=== PATIENT | female | born 1960 | race African-American/Black ===

== ENCOUNTER 2021-09-01 12:42 | Emergency (ER) | payer OTHER, SELFPAY ==
--- NOTE | ~2021-09-01 | XR_ITS ---
EXAMINATION: XR CHEST CLINICAL INFORMATION: Shortness of breath COMPARISON: None TECHNIQUE: Frontal view of the chest was obtained. FINDINGS: The cardiac and mediastinal contours are normal. There is question of a 2 cm cyst in the right upper lobe. This is between the right anterior third and fourth ribs. There are increased markings at the lung bases questionable for bronchial wall thickening or small bronchopneumonia. The lungs are otherwise clear. There is no pleural effusion or pneumothorax. Bony structures are unremarkable. XR/XR chest 1V IMPRESSION: Question 2 cm cyst in the right upper lobe and bilateral lower lobe bronchial wall thickening/bronchopneumonia.
[2021-09-01 13:47] VITALS: BP 137/89; PULSE 112; RESP 20; TEMP 37.2; O2SAT 96; BMI 29.2
--- NOTE | 2021-09-01 13:52 | ECG_ITS ---
Test Reason : weakness Blood Pressure : / mmHG Vent. Rate : 115 BPM Atrial Rate : 115 BPM P-R Int : 120 ms QRS Dur : 060 ms QT Int : 324 ms P-R-T Axes : 063 075 046 degrees QTc Int : 448 ms Poor data quality Sinus tachycardia Otherwise normal ECG No previous ECGs available Referred By: Generic ED Physician Electronically Signed By:Yannick Ribeiro
[2021-09-01 18:13] VITALS: BP 138/91; PULSE 112; RESP 16; O2SAT 93
--- NOTE | 2021-09-01 20:40 | PC.NURSE ---
daughter Vira [phone]. call for a ride home and updates if needed. pt has been caring for herself and has not been able to take her meds as ordered, pt family looking for placement or pt
[2021-09-01 21:07] LABS: Eosinophils Percent Auto 0.2 % (0-4); Imm Gran Abs Auto 0.01 X10*3/uL (0.00-0.03); Imm Gran Pct Auto 0.2 % (0.0-0.4); MANUAL DIFF FLAG SCAN; Red Cell Distribution Width 13.4 % (11.0-16.0); SCAN SMEAR FLAG 1
[2021-09-01 21:11] LABS: Basophils Percent Auto 0.2 % (0-2); Hematocrit 35.6 % (37.0-47.0); Hemoglobin 12.6 g/dl (12.0-16.0); Lymphocytes Percent Auto 42.2 % (20-40); Mean Corpuscular HGB Conc 35.4 g/dl (31.0-35.0); Mean Corpuscular Hemoglobin 27.9 pg (27.0-33.0); Mean Corpuscular Volume 78.9 fL (80.0-98.0); Mean Platelet Volume 11.1 fL (9.4-12.3); Monocytes Absolute Auto 0.3 X10*3/uL (0.1-1.2); Monocytes Percent Auto 6.9 % (2-11); Neutrophils Absolute Auto 2.3 x10*3/uL (2.0-8.3); Neutrophils Percent Auto 50.3 % (45-73); Platelet Count 230 X10*3/uL (160-400); Red Blood Count 4.51 X10*6/uL (4.20-5.50); White Blood Count 4.6 X10*3/uL (4.8-10.8)
[2021-09-01 21:23] LABS: Anion Gap 15 (12-20); Blood Urea Nitrogen 7 mg/dL (9-16); Calcium 8.9 mg/dL (8.4-10.2); Carbon Dioxide 25 mmol/L (22-29); Chloride 104 mmol/L (96-108); Creatinine Clr Calc Pharmacy 80.3; Estimated Glomerular Filt Rate > 60; Glucose Random 81 mg/dL (60-115); Potassium 3.9 mmol/L (3.3-5.1); Sodium 140 mmol/L (135-145)
[2021-09-01 21:32] LABS: SLIDE REVIEW VERIFIED
[2021-09-01 21:44] LABS: Influenza A PCR NEGATIVE (Negative); Influenza B PCR NEGATIVE (Negative); Resp Syncy Virus RNA Qual PCR NEGATIVE (Negative)
[2021-09-01 21:53] LABS: SARS COV2 PCR INHOUSE POSITIVE (Negative)
--- NOTE | 2021-09-01 23:17 | ED.WEAKNESS ---
HPI - Weakness General Chief complaint: Weakness Stated complaint: Covid Time Seen by Provider: 09/01/21 23:13 History of Present Illness HPI Narrative: Patient is a 61-year-old female presented today with generalized malaise. Patient is not vaccinated for COVID. Complaining mild coughing some generalized malaise. Positive nausea. Patient from home. Patient tested positive for COVID 4 days ago at [facility]. Related Data Previous Rx's Medication Instructions Recorded ibuprofen 400 mg tablet 400 mg PO Q6H PRN #20 tab 09/01/21 ondansetron 4 mg disintegrating 4 mg PO TID PRN 5 Days #10 tab 09/01/21 tablet Allergies Allergy/AdvReac Type Severity Reaction Status Date / Time No Known Allergies Allergy Verified 09/01/21 23:14 Review of Systems Review of Systems: Positive coughing positive upper respiratory symptoms Positive generalized malaise All system reviewed otherwise negative [facility] Past Medical History Attestation statement: The following information was validated with the patient. Medical History No known health problems Social History Social History Patient : No Physical Exam Vital Signs: Vital Signs: Last Vital Signs Temp 98.3 F 09/01/21 23:25 Pulse 117 H 09/01/21 23:25 Resp 16 09/01/21 18:13 BP 118/77 09/01/21 23:25 Pulse Ox 97 09/01/21 23:25 BMI result Body Mass Index 29.2 Appearance: Alert. Oriented X3. No acute distress. Eyes: Pupils equal, round and reactive to light. ENT: Pharynx normal. Neck: Normal inspection. Neck supple. No lymph nodes noted. No crepitus CVS: Normal heart rate and rhythm. Pulses normal. Normal S1 and S2 Respiratory: No respiratory distress. Breath sounds normal. No Wheezing. No rales Abdomen: Soft and nontender. No rigidity. No distention. good BS x4 Skin: Skin warm and dry. Normal skin color. Normal skin turgor. Extremities: No lower extremity edema. Neurovascular intact to all extremities. No Lacerations. No Rash Neuro: Oriented X 3. No motor deficit. No sensory deficit. Moving all extermities. No slurred speech MDM - Weakness MDM Narrative Medical decision making narrative: Patient's electrolytes normal. Hemoglobin 12. Patient's O2 sats 96% to 97% on room air after ambulation. Will give IV fluid as patient appears dehydrated Zofran for nausea Toradol for pain. Patient's symptom greater than 5 days not a candidate for oral treatment of COVID. She is currently in stable condition with discharge home. Lab Data Result diagrams: 09/01/21 21:00 09/01/21 21:00 Labs: Lab Results 09/01/21 09/01/21 09/01/21 Range/Units 21:00 21:00 21:00 WBC 4.6 L (4.8-10.8) X10*3/uL RBC 4.51 (4.20-5.50) X10*6/uL Hgb 12.6 (12.0-16.0) g/dl Hct 35.6 L (37.0-47.0) % MCV 78.9 L (80.0-98.0) fL MCH 27.9 (27.0-33.0) pg MCHC 35.4 H (31.0-35.0) g/dl RDW 13.4 (11.0-16.0) % Plt Count 230 (160-400) X10*3/uL MPV 11.1 (9.4-12.3) fL Immature Gran % (Auto) 0.2 (0.0-0.4) % Neut % (Auto) 50.3 (45-73) % Lymph % (Auto) 42.2 H (20-40) % Crowley % (Auto) 6.9 (2-11) % Eos % (Auto) 0.2 (0-4) % Baso % (Auto) 0.2 (0-2) % Lymph # (Auto) 2.0 (1.2-4.9) X10*3/uL Crowley # (Auto) 0.3 (0.1-1.2) X10*3/uL Eos # (Auto) 0.0 (0.0-0.4) X10*3/uL Baso # (Auto) 0.0 (0.0-0.2) X10*3/uL Abs Immat Gran (auto) 0.01 (0.00-0.03) X10*3/uL Absolute Neuts (auto) 2.3 (2.0-8.3) x10*3/uL Absolute Nucleated RBC 0.000 (0.0-0.012) X10*3/uL Nucleated RBC % (auto) 0.0 (0.0-0.2) /100WBC Smear Tech's Comments VERIFIED Sodium 140 (135-145) mmol/L Potassium 3.9 (3.3-5.1) mmol/L Chloride 104 (96-108) mmol/L Carbon Dioxide 25 (22-29) mmol/L Anion Gap 15 (12-20) BUN 7 L (9-16) mg/dL Creatinine 0.75 (0.5-1.4) mg/dL Estim Creat Clear Calc 80.3 Estimated GFR > 60 Random Glucose 81 (60-115) mg/dL Calcium 8.9 (8.4-10.2) mg/dL Troponin I High Sens (<3.5-17.0) ng/L Influenza Type A (PCR) NEGATIVE (Negative) Influenza Type B (PCR) NEGATIVE (Negative) RSV RNA Qual (PCR) NEGATIVE (Negative) SARS-CoV-2 RNA (RT-PCR) POSITIVE A (Negative) 09/01/21 Range/Units 21:00 WBC (4.8-10.8) X10*3/uL RBC (4.20-5.50) X10*6/uL Hgb (12.0-16.0) g/dl Hct (37.0-47.0) % MCV (80.0-98.0) fL MCH (27.0-33.0) pg MCHC (31.0-35.0) g/dl RDW (11.0-16.0) % Plt Count (160-400) X10*3/uL MPV (9.4-12.3) fL Immature Gran % (Auto) (0.0-0.4) % Neut % (Auto) (45-73) % Lymph % (Auto) (20-40) % Crowley % (Auto) (2-11) % Eos % (Auto) (0-4) % Baso % (Auto) (0-2) % Lymph # (Auto) (1.2-4.9) X10*3/uL Crowley # (Auto) (0.1-1.2) X10*3/uL Eos # (Auto) (0.0-0.4) X10*3/uL Baso # (Auto) (0.0-0.2) X10*3/uL Abs Immat Gran (auto) (0.00-0.03) X10*3/uL Absolute Neuts (auto) (2.0-8.3) x10*3/uL Absolute Nucleated RBC (0.0-0.012) X10*3/uL Nucleated RBC % (auto) (0.0-0.2) /100WBC Smear Tech's Comments Sodium (135-145) mmol/L Potassium (3.3-5.1) mmol/L Chloride (96-108) mmol/L Carbon Dioxide (22-29) mmol/L Anion Gap (12-20) BUN (9-16) mg/dL Creatinine (0.5-1.4) mg/dL Estim Creat Clear Calc Estimated GFR Random Glucose (60-115) mg/dL Calcium (8.4-10.2) mg/dL Troponin I High Sens 5.0 (<3.5-17.0) ng/L Influenza Type A (PCR) (Negative) Influenza Type B (PCR) (Negative) RSV RNA Qual (PCR) (Negative) SARS-CoV-2 RNA (RT-PCR) (Negative) Discharge Plan Discharge Clinical Impression: COVID-19 Patient Disposition: Home, Self-Care Instructions: COVID-19 (Coronavirus Disease 2019) (ED) Prescriptions: New ibuprofen 400 mg tablet 400 mg PO Q6H PRN (Reason: pain) Qty: 20 RF: 0 ondansetron 4 mg tablet,disintegrating 4 mg PO TID PRN (Reason: nausea and vomiting) 5 Days Qty: 10 RF: 0 Referrals: Cassie Esparza MD [Primary Care Provider] - 2 days (Worsening condition return to the emergency department. Home isolation for at least 7 days.)
[2021-09-01 23:25] VITALS: BP 118/77; PULSE 117; TEMP 36.8; O2SAT 97
[2021-09-01] MEDS: ondansetron HCL 4 MG/2 ML VIAL IVPUSH (23:57)
[2021-09-01] MEDS: 0.9 % Sodium Chloride 1,000 ML 999 ML IV (23:57)
[2021-09-01] MEDS: Ketorolac Tromethamine 30 MG/ML VIAL IVPUSH (23:57)
[2021-09-02 01:26] VITALS: BP 131/81; PULSE 100; RESP 18; O2SAT 94
== END 2021-09-02 01:41 | disposition home or self-care (01) ==
LOC: HO.ED 09-02 00:34
PROVIDERS: Emergency Provider Emergency Medicine Emergency Medical Services; PCP Internal Medicine
DX: U07.1 COVID-19 (principal); R05.9 Cough, unspecified; M79.10 Myalgia, unspecified site; Z79.899 Other long term (current) drug therapy
CPT/HCPCS: 0241U; 36415; 71045; 80048; 84484; 85025; 93005; 96361; 96374; 96375; 99284; J1885; J2405